=== PATIENT | male | born 2000 | race Caucasian/White ===

== ENCOUNTER → 2022-06-25 | Outpatient (CLI) | payer BC, SELFPAY ==
[2022-06-25 17:42] LABS: Erythrocyte Sedimentation Rate 13 mm/hr (0-20)
[2022-06-25 17:44] LABS: Absolute Lymphocyte Count 2.42 X10^3/uL (0.83-4.51); Absolute Neutrophil Count 3.9 X10^3/uL (2.0-7.7); Basophil# 0.08 X10^3/uL; Basophil% 1.1 % (0-1); Eosinophil# 0.43 X10^3/uL; Eosinophils% 5.8 % (0-5); Hematocrit 47.5 % (40-54); Lymphocyte # 2.42 X10^3/ul (0.83-4.51); Lymphocyte % 32.5 % (19-41); Mean Corp Hgb Conc 33.7 g/dL (32-36); Mean Corpuscular Hgb 30.1 pg (27.0-32.0); Mean Corpuscular Volume 89.3 fL (80-94); Mean Platelet Vol. 9.9 fl (6.2-12.0); Monocyte# 0.57 X10^3/uL; Monocyte% 7.7 % (0-10); NRBC Flagged by Analyzer 0 % (0-5); Neutrophil # 3.88 X10^3/uL (2.7-7.7); Neutrophil % 52.1 % (47-70); Platelet Count 295 K/mm3 (150-450); RBC Distribution Width CV 12.1 % (11.6-14.6); Red Blood Count 5.32 M/mm3 (4.6-6.2); White Blood Count 7.4 K/mm3 (4.4-11.0)
[2022-06-25 18:02] LABS: AST(SGOT) 28 U/L (15-37); Alanine Aminotransfer ALT/SGPT 54 U/L (16-61); Albumin, Serum 4.3 g/dL (3.2-5.0); Alkaline Phosphatase 67 U/L (45-117); Anion Gap 6 (5-15); BUN 11 mg/dL (7-18); BUN/Creat Ratio 14.1 RATIO (10-20); CRP < 2.90 mg/L (0.0-3.0); Calcium,Total 9.6 mg/dL (8.5-10.1); Chloride 102 mmol/L (98-107); Cholesterol 189 mg/dL (200); Creatinine, Serum 0.78 mg/dL (0.70-1.30); EST Glomerular Filtration Rate 130 mL/min (>60); Est Glom Filt Rate - Afr Amer 157 mL/min (>60); Globulin 4.1 g/dL (2.2-4.2); Glucose 85 mg/dL (74-106); High Density Lipoprotein 51 mg/dL; Potassium 3.8 mmol/L (3.5-5.1); Protein, Total 8.4 g/dL (6.4-8.2); Sodium Level 137 mmol/L (136-145); Thyroid Stim Hormone (TSH) 4.18 uIU/mL (0.358-3.74); Triglycerides 130 mg/dL; Very Low Density Lipoprotein 26 mg/dL (5-40)
[2022-06-26 08:50] LABS: T4 Free Direct 0.82 ng/dL (0.76-1.46)
== END | disposition home or self-care (01) ==
LOC: MFPLAB 15:39
PROVIDERS: PCP Family Medicine; Referring Provider Family Medicine; Visit Provider Family Medicine
DX: R59.0 Localized enlarged lymph nodes (principal); Z13.220 Encounter for screening for lipoid disorders; R53.83 Other fatigue
CPT/HCPCS: 36415; 80053; 80061; 84439; 84443; 85025; 85652; 86140

== ENCOUNTER → 2022-07-02 | Outpatient (CLI) | payer BC, SELFPAY ==
--- NOTE | 2022-07-02 08:01 | CT_ITS ---
STUDY: CT CHEST, ABDOMEN T PELVIS WITH CONTRAST REASON FOR EXAM: Male, 22 years old. Bilateral inguinal lymphadenopathy RADIATION DOSAGE (If Supplied By Facility): CTDIvol = ( 16.20 ) mGy, DLP = ( 1590.54 ) mGycm TECHNIQUE: Transaxial imaging was performed following intravenous administration of IV 100mL Isovue-300. Multiplanar coronal and sagittal images were reformatted. Individualized dose optimization techniques were used for this CT. COMPARISON: No relevant priors. FINDINGS: There are no pulmonary infiltrates or pleural effusions. There are no pulmonary nodules or masses. There is no pneumothorax. The heart and pericardium are within normal limits. There is no thoracic lymphadenopathy. There is no evidence of thoracic aortic aneurysm. There are no calcified gallstones present. The liver is within normal limits. There are no suspicious hepatic lesions. The spleen is normal in size. The pancreas is within normal limits. The adrenal glands are within normal limits. There are no renal or ureteral stones. There is no hydronephrosis. There are no focal renal lesions. Normal visualized stomach. There is no bowel obstruction or inflammation. The appendix is visualized and appears normal. The abdominal aorta is normal in caliber. There is mild bilateral inguinal lymphadenopathy with the largest node measuring 2.4 x 1.2 cm on the right. There is no abdominal or pelvic lymphadenopathy noted. There is no free air, free fluid or fluid collection. The visualized osseous structures are within normal limits. There are no destructive osseous lesions. CT/CT Chest, Abd, Pel w/Contrast IMPRESSION: Mild bilateral nonspecific inguinal lymphadenopathy. No additional enlarged lymph nodes. Otherwise, unremarkable contrast-enhanced CT of the chest, abdomen and pelvis. Electronically Signed: Low Nguyen MD at 8:52 EDT ,
== END | disposition home or self-care (01) ==
LOC: CT 07:58
PROVIDERS: PCP Family Medicine; Referring Provider Family Medicine; Visit Provider Family Medicine
DX: R59.0 Localized enlarged lymph nodes (principal)
CPT/HCPCS: 71260; 74177; Q9967

== ENCOUNTER 2023-05-12 10:36 | Emergency (ER) | payer BC, SELFPAY ==
[2023-05-12 10:37] VITALS: BP 129/81; PULSE 84; RESP 14; TEMP 37.2; O2SAT 99; BMI 37.0
--- NOTE | 2023-05-12 10:39 | NURSING ---
NO OLD EKGS
--- NOTE | 2023-05-12 11:12 | EDS_ITS ---
HPI History of Present Illness Chief Complaint: Syncope Detail of Chief Complaint: Syncopal episode and ill x 3 days Informant: patient Narrative Narrative: Patient presents to the emergency department with complaint of feeling sick for 3 days and a syncopal episode this morning. Patient states that he went to the urgent care today because he has had a cough and fever and sore throat and vomiting x 3 days. Patient states that he was in the shower today and felt like he was in a pass out and before he could get out he passed out and scratched up his back. She had 1 other episode of passing out. He remembers feeling somewhat lightheaded volume in the shower. He remembers some ringing in his ears. He denies any chest pain. He denies shortness of breath currently. 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 No prior history of PE or DVT. [facility] Medical History (Updated 05/12/23 @ 12:[address] Genna Robins, DO) Syncope Home Medications ondansetron 4 mg disintegrating tablet 4 mg PO Q8H PRN PRN Nausea #10 tabs 05/12/23 [Rx Last Taken Unknown] Allergy/AdvReac Type Severity Reaction Status Date / Time No Known Allergies Allergy Verified 05/12/23 10:49 Social History Smoking Status: Current every day smoker tobacco type: e-cigarettes ROS ROS ED ROS Narrative Syncope Review of Systems ROS Unobtainable: other Constitutional Constitutional ED: Reports lethargy; Denies chills, fever(s), sweats or weight loss Eyes Eyes: Denies blurry vision, change in vision or diplopia ENT ENT ED: Denies rhinorrhea or sore throat Cardiovascular Cardiovascular: Denies chest pain, orthopnea or racing heartbeat Respiratory/Chest Respiratory/Chest: Reports cough; Denies dyspnea, dyspnea on exertion, orthopnea or sputum Gastrointestinal Gastrointestinal: Denies abdominal pain, diarrhea, nausea or vomiting Genitourinary Genitourinary ED: Denies dysuria, hematuria or urinary frequency Musculoskeletal Musculoskeletal: Denies arthralgias, back pain, myalgias or neck pain Integumentary Reports other Details: Scratches to the back ; Denies abscess, Abrasions or rash Neurologic Neurologic: Denies headache(s) or weakness Psychiatric Psychiatric: Denies anxiety, depression or suicidal thoughts Endocrine Endocrinology: Denies polydipsia, polyphagia or polyuria Hematologic/Lymphatic Hematologic/Lymphatic: Denies easy bleeding, easy bruising or lymphadenopathy Allergic/Immunologic Allergic/Immunologic ED: Denies mouth swelling, tongue swelling or urticaria EXAM Physical Exam Const Vital Signs: 05/12/23 10:37 05/12/23 10:49 05/12/23 12:32 Temperature 99 F Temperature Source Temporal Pulse Rate 84 92 Respiratory Rate 14 Respiratory Effort Normal Non-Labored Blood Pressure 129/81 H 136/82 H Blood Pressure Mean 97 100 Pulse Ox 99 Oxygen Delivery Method Room Air 05/12/23 12:45 Temperature Temperature Source Pulse Rate 91 Respiratory Rate 24 H Respiratory Effort Blood Pressure 124/94 H Blood Pressure Mean 104 Pulse Ox 100 Oxygen Delivery Method Positive well nourished and well developed General Appearance ED: well developed and NAD HEENT Reports TM's clear and moist mucous membranes normocephalic and atraumatic; Negative for trauma or tenderness Tympanic Membrane ED: Yes TM's clear Eyes PERRL and EOMs intact bilaterally General Eye ED: Negative for pale conjunctiva or scleral icterus Neck no lymphadenopathy, supple and no JVD General: Negative for tenderness Chest Wall inspection of chest normal and palpation of chest normal Chest: Negative for tenderness Resp normal respiratory effort and clear to auscultation bilaterally Effort and Inspection: Negative for respiratory distress or pain with movement Auscultation: Negative for rhonchi, wheezes or diminished lung sounds Cardio regular rate, regular rhythm, S1 normal heart sound, S2 normal heart sound and no murmurs Peripheral Pulses: pulses 2+ throughout GI normal to inspection, nondistended, normoactive bowel sounds, soft to palpation, non-tender, non-distended and no masses Back/Spine no CVA tenderness and no thoracic nor lumbar tenderness Extremity normal to inspection General Extremety ED: Negative for edema General Extremity: Negative for edema Neuro oriented x3, CN's II-XII intact bilaterally, no sensory deficits noted and gait normal Sensorium / Orientation: awake, alert, oriented to person, oriented to place and oriented to time Motor Exam: strength 5/5 throughout and strength abnormal Psych mental status grossly normal Skin Skin Narrative: Patient with superficial abrasion to the right upper back extending linearly down towards the right flank with some ecchymosis and bruising. This is from where patient hit the faucet in the tub portion of the shower. MDM MDM MDM Narrative Medical decision making narrative: Patient presents with URI symptoms x 3 days. He also had a syncopal episode in the shower today that clinically sounds like it could be a vagal episode. EKG obtained arrival showed a sinus rhythm with a rate of 85 bpm with no acute ST segment changes. CBC with differential white count 6.2 with hemoglobin 14.9 and platelet count of 186. Chemistries unremarkable. Glucose was 119. Testing for COVID flu and RSV was positive for influenza A. While in department he received Zofran and normal saline. Feels improved. He does have some abrasions that are superficial to his back and will feel any imaging is indicated. Patient will be discharged to home. He is out of the window for starting Tamiflu. Patient will drink lots of fluids to stay hydrated. Advised to follow-up with his primary care physician within next 3 to 5 days or to return if increasing shortness of breath or persistent syncopal episodes or condition should worsen anyway. Lab Data Attestation: I reviewed the patient's lab results. Labs: Laboratory Results - last 24 hr 05/12/23 11:25 WBC 6.2 RBC 4.87 Hgb 14.9 Hct 43.9 MCV 90.1 MCH 30.6 MCHC 33.9 RDW Std Deviation 39.6 RDW Coeff of Komal 12.0 Plt Count 186 MPV 9.9 Immature Gran % (Auto) 0.300 Neut % (Auto) 67.7 Lymph % (Auto) 17.9 L [place] % (Auto) 12.5 H Eos % (Auto) 0.8 Baso % (Auto) 0.8 Absolute Neuts (auto) 4.2 Absolute Lymphs (auto) 1.10 Nucleated RBC % 0 D-Dimer Quant (PE/DVT) 0.43 Sodium 136 Potassium 4.2 Chloride 104 Carbon Dioxide 27.0 Anion Gap 5 BUN 10 Creatinine 0.94 Estim Creat Clear Calc 154.08 Est GFR (MDRD) Af Amer 126 Est GFR (MDRD) Non-Af 104 BUN/Creatinine Ratio 10.6 Glucose 119 H Calcium 8.6 EKG Initial EKG: Attestation: I personally reviewed and interpreted this EKG as follows: Comments: Sinus rhythm with a rate of 85 bpm with no acute ST segment changes Discharge Plan Triage Chief Complaint: Syncope ED Provider: Genna Robins Dx/Rx/DC Orders Clinical Impression: Influenza A, Vasovagal syncope Instructions: ED Influenza (Adult), ED Fainting, Vagal Reaction Prescriptions: New ondansetron [ondansetron] 4 mg tablet,disintegrating 4 mg PO Q8H PRN PRN (Reason: Nausea) Qty: 10 0RF Primary Care Provider: Renny Mcrae Referrals: Renny Mcrae MD [Primary Care Provider] - 3-5 Days Disposition Disposition: Home, Self Care Discharge Date/Time: 05/12/23 12:46
[2023-05-12] MEDS: 0.9% Normal Saline (1000mL) 1,000 ML 150 ML IV (11:27)
[2023-05-12] MEDS: Ondansetron 4 MG/2 ML Vial IV (11:27)
[2023-05-12 11:37] LABS: Absolute Neutrophil Count 4.2 X10^3/uL (2.0-7.7); Basophil# 0.05 X10^3/uL; Basophil% 0.8 % (0-1); Eosinophil# 0.05 X10^3/uL; Eosinophils% 0.8 % (0-5); Hematocrit 43.9 % (40-54); Hemoglobin 14.9 g/dL (13.0-16.5); Lymphocyte % 17.9 % (19-41); Mean Corp Hgb Conc 33.9 g/dL (32-36); Mean Corpuscular Hgb 30.6 pg (27.0-32.0); Mean Corpuscular Volume 90.1 fL (80-94); Mean Platelet Vol. 9.9 fl (6.2-12.0); Monocyte# 0.77 X10^3/uL; Monocyte% 12.5 % (0-10); NRBC Flagged by Analyzer 0 % (0-5); Neutrophil # 4.17 X10^3/uL (2.7-7.7); Neutrophil % 67.7 % (47-70); Platelet Count 186 K/mm3 (150-450); RBC Distribution Width SD 39.6 fl (35.1-43.9); Red Blood Count 4.87 M/mm3 (4.6-6.2); White Blood Count 6.2 K/mm3 (4.4-11.0)
[2023-05-12 11:42] LABS: D-Dimer Quantitative (DVT/PE) 0.43 FEU/ug/m (0.27-0.49)
[2023-05-12 11:44] LABS: Anion Gap 5 (5-15); BUN 10 mg/dL (7-18); BUN/Creat Ratio 10.6 RATIO (10-20); Calcium,Total 8.6 mg/dL (8.5-10.1); Chloride 104 mmol/L (98-107); Creatinine, Serum 0.94 mg/dL (0.70-1.30); EST Glomerular Filtration Rate 104 mL/min (>60); Est Glom Filt Rate - Afr Amer 126 mL/min (>60); Estimated Creatinine Clearance 154.08 ml/min; Glucose 119 mg/dL (74-106); Potassium 4.2 mmol/L (3.5-5.1); Sodium Level 136 mmol/L (136-145)
[2023-05-12 12:32] VITALS: BP 136/82; PULSE 92
[2023-05-12 12:45] VITALS: BP 124/94; PULSE 91; RESP 24; O2SAT 100
== END 2023-05-12 12:46 | disposition home or self-care (01) ==
PROVIDERS: Emergency Provider Emergency Medicine; PCP Family Medicine; Referring Provider Emergency Medicine; Visit Provider Emergency Medicine
DX: R55 Syncope and collapse (principal); J10.1 Influenza due to other identified influenza virus with other respiratory manifestations; F17.290 Nicotine dependence, other tobacco product, uncomplicated
CPT/HCPCS: 80048; 85025; 85379; 87631; 93005; 96361; 96374; 99285; J7030; A4216; J2405

== ENCOUNTER → 2023-07-23 | Outpatient (CLI) | payer BC, SELFPAY ==
[2023-07-23 12:11] LABS: Bacteria 0 SEEN /hpf (None Seen); Mucous, Urine 0 SEEN /hpf (<or=2+); Red Blood Cells-Urine 0 SEEN /hpf (0-5); Squamous Epithelial Cells - UA 0 SEEN /hpf (0-5); White Blood Cells 0 SEEN /hpf (0-5)
[2023-07-23 12:12] LABS: Erythrocyte Sedimentation Rate 19 mm/hr (0-20)
[2023-07-23 12:13] LABS: Hematocrit 44.7 % (40-54); Hemoglobin 15.3 g/dL (13.0-16.5); Mean Corp Hgb Conc 34.2 g/dL (32-36); Mean Corpuscular Hgb 29.9 pg (27.0-32.0); Mean Corpuscular Volume 87.5 fL (80-94); Mean Platelet Vol. 9.6 fl (6.2-12.0); Platelet Count 310 K/mm3 (150-450); RBC Distribution Width CV 11.7 % (11.6-14.6); RBC Distribution Width SD 37.5 fl (35.1-43.9); Red Blood Count 5.11 M/mm3 (4.6-6.2); White Blood Count 5.8 K/mm3 (4.4-11.0)
[2023-07-23 12:22] LABS: Glucose, Dipstick Normal (Normal); Leukocyte Esterase-Dipstick Negative /ul (Negative); Nitrite-Dipstick Negative (Negative); Occult Blood-Urine Negative /ul (Negative); Protein-Dipstick Negative (Negative); Specific Gravity, Urine 1.025 (1.002-1.030); Urine Bilirubin Dipstick Negative (Negative); Urine Urobilinogen Normal (Normal)
[2023-07-23 12:26] LABS: Color, Urine Yellow (Yellow); Urine Clarity Clear (Clear)
[2023-07-23 12:29] LABS: Ketone-Dipstick 150 mg/dl (Negative)
[2023-07-23 12:52] LABS: AST(SGOT) 46 U/L (15-37); Alanine Aminotransfer ALT/SGPT 98 U/L (16-61); Albumin, Serum 4.2 g/dL (3.2-5.0); Alkaline Phosphatase 56 U/L (45-117); Anion Gap 8 (5-15); BUN 12 mg/dL (7-18); BUN/Creat Ratio 14.2 RATIO (10-20); Calcium,Total 9.3 mg/dL (8.5-10.1); Chloride 106 mmol/L (98-107); Cholesterol 193 mg/dL (200); Creatinine, Serum 0.85 mg/dL (0.70-1.30); EST Glomerular Filtration Rate 117 mL/min (>60); Est Glom Filt Rate - Afr Amer 142 mL/min (>60); Free T3 3.1 pg/mL (2.18-3.98); Glucose 95 mg/dL (74-106); High Density Lipoprotein 32 mg/dL; Potassium 4.3 mmol/L (3.5-5.1); Protein, Total 8.2 g/dL (6.4-8.2); Sodium Level 136 mmol/L (136-145); T4 Free Direct 1.12 ng/dL (0.76-1.46); Thyroid Stim Hormone (TSH) 2.18 uIU/mL (0.358-3.74); Triglycerides 78 mg/dL; Troponin-I HS 4 pg/mL (3.0-78.0); Very Low Density Lipoprotein 16 mg/dL (5-40)
== END | disposition home or self-care (01) ==
PROVIDERS: PCP Family Medicine; Referring Provider Family Medicine; Visit Provider Family Medicine
DX: R82.4 Acetonuria (principal); R55 Syncope and collapse; R94.6 Abnormal results of thyroid function studies; Z13.220 Encounter for screening for lipoid disorders; R59.0 Localized enlarged lymph nodes
CPT/HCPCS: 36415; 80053; 80061; 81001; 83036; 84439; 84443; 84481; 84484; 85027; 85652; 86140

== ENCOUNTER → 2023-07-29 | Outpatient (CLI) | payer BC, SELFPAY ==
[2023-07-29 18:13] LABS: AST(SGOT) 54 U/L (15-37); Alanine Aminotransfer ALT/SGPT 111 U/L (16-61); Albumin, Serum 4.2 g/dL (3.2-5.0); Alkaline Phosphatase 56 U/L (45-117); Bilirubin, Direct 0.17 mg/dL (0.00-0.30); Globulin 3.7 g/dL (2.2-4.2); Protein, Total 7.9 g/dL (6.4-8.2)
[2023-07-31 13:08] LABS: Adrenocorticotropic Hormone 22.4 pg/mL (7.2-63.3)
== END | disposition home or self-care (01) ==
PROVIDERS: PCP Family Medicine; Visit Provider Family Medicine
DX: R82.4 Acetonuria (principal)
CPT/HCPCS: 36415; 80076; 82024; 83036

== ENCOUNTER → 2023-08-05 | Outpatient (CLI) | payer BC, SELFPAY ==
[2023-08-05 10:53] LABS: GGTP 165 U/L (15-85)
== END | disposition home or self-care (01) ==
LOC: MFPLAB 08:47
PROVIDERS: PCP Family Medicine; Visit Provider Family Medicine
DX: R79.89 Other specified abnormal findings of blood chemistry (principal)
CPT/HCPCS: 36415; 82977

== ENCOUNTER → 2023-08-27 | Outpatient (CLI) | payer BC, SELFPAY ==
--- NOTE | 2023-08-27 09:54 | US_ITS ---
STUDY: ABDOMINAL ULTRASOUND - RIGHT UPPER QUADRANT; ELASTOGRAPHY REASON FOR VISIT: Male, 23 years old. Abdominal pain. Abnormal liver function test. TECHNIQUE: Ultrasound evaluation of the right upper quadrant was performed with real-time and static ruano-scale imaging. Point quantification shear wave elastography was performed ([employer]). TECHNICAL QUALITY: Adequate. COMPARISON: None. FINDINGS: Liver: The liver measures 17.2 cm. There is increased echogenicity consistent with fatty infiltration. There is evidence of focal fatty sparing adjacent to the gallbladder fossa. The bile ducts are within normal limits. There is hepatic color flow. The direction of portal flow is hepatopetal. There is no demonstrated mass lesion. Median liver stiffness measured 6.1 kPa. Gallbladder: Normal distended gallbladder. The gallbladder wall measures 2.1 mm. There is a negative sonographic Arora''s sign. There is no pericholecystic fluid. There are no gallstones. Common Bile Duct (C.B.D.): The common bile duct measures 2.8 mm. Pancreas: There is normal echogenicity of the visualized pancreas. There is no demonstrated pancreatic mass or cyst. Right Kidney: Normal size of the right kidney. The right kidney measures 10.8 cm x 6.1 cm x 4.2 cm. Normal renal cortex. The right cortex measures 1.2 cm. There is no demonstrated renal mass or cyst. There is no right hydronephrosis. US/ABD Limited w/ Elastography IMPRESSION: 1. 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 2. Fatty infiltration of the liver with focal fatty sparing adjacent to the gallbladder fossa. Electronically Signed: Anjum Reyes MD at 9:39 EDT ,
== END | disposition home or self-care (01) ==
PROVIDERS: PCP Family Medicine; Referring Provider Family Medicine; Visit Provider Family Medicine
DX: R10.9 Unspecified abdominal pain (principal)
CPT/HCPCS: 76705; 76981

== ENCOUNTER → 2023-09-15 | Outpatient (CLI) | payer BC, SELFPAY ==
--- NOTE | 2023-09-16 17:10 | STRESSREP_ITS ---
Stress Test Report Date: 09/15/2023 Procedure: Exercise tolerance test Indications: Syncope Consent: Per the patient Procedure: The patient exercised on a Fam protocol for 8 minutes achieving a peak heart rate of 184 bpm (94% predicted maximal heart rate) with a peak blood pressure 184/82 mmHg and a peak MET capacity of approximately 10.1 MET's. The baseline ECG demonstrated normal sinus rhythm. The peak exercise ECG demonstrated no significant ischemic changes. [There were no cardiac dysrhythmias pretest, during exercise, or recovery]. The functional capacity was considered normal for age. The patient had no complaint of chest discomfort during exercise or recovery. The examination was discontinued secondary to shortness of breath. Impression: 1. Technically adequate (percent predicted maximal heart rate greater than 85%) exercise tolerance test 2. Stress test is negative for exercise-induced chest pain. 3. Stress test test is negative for exercise-induced EKG changes of ischemia. 4. Functional capacity is normal for age This note was generated with [employer] software. It may contain incorrect words, spelling, and punctuation that were not noted in checking the note before signing.
== END | disposition home or self-care (01) ==
LOC: CVS 12:04
PROVIDERS: PCP Family Medicine; Referring Provider Family Medicine; Visit Provider Family Medicine
DX: E66.9 Obesity, unspecified (principal)
CPT/HCPCS: 93017